=== PATIENT | male | born 1925 | race Caucasian/White ===

== ENCOUNTER 2017-01-24 10:28 | Inpatient (IN) | payer MEDICARE ==
[~2017-01-24] VITALS: Ht 167.6 cm; Wt 67.3 kg
[2017-01-24] VITALS (7 sets, daily range): BP systolic 148–176; BP diastolic 88–102; PULSE 62–72; RESP 12–18; TEMP 96.2–98.3; O2SAT 96–99
[~2017-01-24 10:28] MED LIST: ASPI81TA82 PO; MEVA40TA6 PO
[2017-01-24] MEDS ORDERED: LOVA40TA PO (11:23)
[2017-01-24] MEDS ORDERED: CARB25TA9 PO (11:23)
[2017-01-24] MEDS ORDERED: TAMS0.4C4 PO (11:23)
[2017-01-24] MEDS ORDERED: ASPI81CH37 CHEW (11:23)
[2017-01-24] MEDS ORDERED: LISI-519 PO (11:23)
[2017-01-24] MEDS ORDERED: PLAV75TA29 PO (11:24)
[2017-01-24] MEDS ORDERED: SODIUM CHLORIDE 0.9% FLUSH 10 ML FLUSH IV FLUSH PRN (11:45)
[2017-01-24] MEDS ORDERED: traMADol HCL 50 MG TAB PO ONE (11:45)
[2017-01-24 11:56] LABS: AUTOMATED NEUTROPHIL # 5.6 TH/MM3 (1.8-7.7); BASOPHIL % 0.5 % (0.0-2.0); EOSINOPHIL # 0.2 TH/MM3 (0-0.4); EOSINOPHIL % 2.2 % (0.0-4.0); HEMATOCRIT 31.3 % (39.0-51.0); HEMO FLAGS DIFF FINAL; LYMPHOCYTE # 1.1 TH/MM3 (1.0-4.8); MEAN CELL VOLUME 91.4 FL (80.0-100.0); MEAN CORPUSCULAR HEMOGLOBIN 29.5 PG (27.0-34.0); MEAN CORPUSCULAR HGB CONC 32.3 % (32.0-36.0); NEUT % 72.3 % (16.0-70.0); PLATELET COUNT 182 TH/MM3 (150-450); RED BLOOD COUNT 3.43 MIL/MM3 (4.50-5.90); RED CELL DISTRIBUTION WIDTH 14.3 % (11.6-17.2); WHITE BLOOD COUNT 7.8 TH/MM3 (4.0-11.0)
[2017-01-24 12:04] LABS: CHLORIDE 107 MEQ/L (98-107); POTASSIUM 5.4 MEQ/L (3.5-5.1); SODIUM (NA) 141 MEQ/L (136-145)
[2017-01-24 12:09] LABS: ANION GAP 10 MEQ/L (5-15); APTT (PATIENT) 30.8 SEC (24.3-30.1); BICARBONATE 23.7 MEQ/L (21.0-32.0); BLOOD UREA NITROGEN 39 MG/DL (7-18); INTERNATIONAL NORMALIZED RATIO 1.1 RATIO; PROTHROMBIN TIME - PATIENT 12.5 SEC (9.8-11.6)
[2017-01-24 12:12] LABS: ALT (GPT) 11 U/L (12-78); AST (GOT) 18 U/L (15-37); GLOMERULAR FILTRATION RATE 28 ML/MIN (>89)
[2017-01-24 12:14] LABS: TOTAL BILIRUBIN ADULT 0.6 MG/DL (0.2-1.0)
[2017-01-24 12:15] LABS: ALKALINE PHOSPHATASE 59 U/L (45-117)
--- NOTE | 2017-01-24 12:37 | PD ---
HPI Chief Complaint: Fall Time Seen by Provider: 11:27 Travel History International Travel<30 days: No Contact w/Intl Traveler<30days: No Traveled to known affect area: No History of Present Illness HPI 89-year-old male brought in by his family from home for evaluation of left- sided rib pain and left upper quadrant abdominal pain after a fall. The fall occurred a few days ago. The patient reports that he tripped and fell on a rug. He denies head injury or LOC. No head neck or back pain. No pain in his upper or lower extremities. He is mainly complaining of left lateral rib pain which is worse with movements and palpation.. He states the pain gets so bad that it is difficult for him to stand up. He denies dyspnea. History of A. fib on aspirin. He is also on Plavix for history of CVA. PFSH Past Medical History Hx Anticoagulant Therapy: Yes (asa 81mg) Arthritis: Yes Asthma: No Blood Disorders: No Heart Rhythm Problems: No Cancer: No Cardiovascular Problems: Yes (htn on meds) High Cholesterol: Yes Chest Pain: No Congestive Heart Failure: No COPD: No Cerebrovascular Accident: Yes (cva) Diminished Hearing: Yes Endocrine: No Genitourinary: Yes (PROSATE) Headaches: No Hypertension: Yes Immune Disorder: No Psychiatric: No Reproductive: No Respiratory: No Immunizations Current: No Migraines: No Seizures: No Sleep Apnea: No Tetanus Vaccination: Unknown Influenza Vaccination: No Past Surgical History Abdominal Surgery: Yes (LT HERNIA REPAIR 1991) Joint Replacement: Yes (left knee) Other Surgery: Yes (HERNIA AND KNEE REPLACEMENT) Social History Alcohol Use: No Tobacco Use: No Substance Use: No Allergies-Medications (Allergen,Severity, Reaction): Coded Allergies: Neosporin (Verified Allergy, Severe, RASH, 01/24/17) Reported Meds & Prescriptions Reported Meds & Active Scripts Active Reported Plavix (Clopidogrel Bisulfate) 75 Mg Tab 75 Mg PO DAILY Carbidopa-Levodopa 25-100 Mg Tab 1 Tab PO Q8HR Tamsulosin (Tamsulosin HCl) 0.4 Mg Cap 0.4 Mg PO HS Lovastatin 40 Mg Tab 40 Mg PO DAILY Lisinopril 5 Mg Tab 5 Mg PO DAILY Aspirin Low Dose (Aspirin) 81 Mg Chew 81 Mg CHEW DAILY Review of Systems Except as stated in HPI: all other systems reviewed are Neg Physical Exam Narrative GENERAL: Well-developed, well-nourished, elderly-appearing male, comfortable, no acute distress. SKIN: Focused skin assessment warm/dry. No lacerations or abrasions. Mild ecchymosis to left anterior/lateral chest wall. HEAD: Atraumatic. Normocephalic. EYES: Pupils equal and round. No scleral icterus. No injection or drainage. ENT: Mucous membranes pink and moist. NECK: Trachea midline. No JVD. CARDIOVASCULAR: Regular rate and rhythm. No murmur appreciated. RESPIRATORY: No accessory muscle use. Clear to auscultation. Breath sounds equal bilaterally. GASTROINTESTINAL: Abdomen soft, nondistended. Mild left upper quadrant tenderness without peritoneal signs. Rest of abdomen is soft and nontender. MUSCULOSKELETAL: No obvious deformities. No clubbing. No cyanosis. No edema. Moderate left anterior/lateral chest wall tenderness without crepitus, without step-off, without paradoxical chest wall movement. No midline vertebral step- off or tenderness. All joints and extremities are with without deformity, without tenderness, with normal range of motion. NEUROLOGICAL: Awake and alert. No obvious cranial nerve deficits. Motor grossly within normal limits. Normal speech. PSYCHIATRIC: Appropriate mood and affect; insight and judgment normal. Data Data Last Documented VS Vital Signs Date Time Temp Pulse Resp B/P Pulse Ox O2 Delivery O2 Flow Rate FiO2 01/24/17 13:23 63 18 169/90 96 Room Air 01/24/17 10:36 98.3 Orders Complete Blood Count With Diff (01/24/17 11:35) Comprehensive Metabolic Panel (01/24/17 11:35) Prothrombin Time / Inr (Pt) (01/24/17 11:35) Act Partial Throm Time (Ptt) (01/24/17 11:35) Iv Access Insert/Monitor (01/24/17 11:35) Ecg Monitoring (01/24/17 11:35) Oximetry (01/24/17 11:35) Sodium Chloride 0.9% Flush (Ns Flush) (01/24/17 11:45) Tramadol (Ultram) (01/24/17 11:45) Ckmb (Isoenzyme) Profile (01/24/17 11:40) Troponin I (01/24/17 11:40) Ct Abd/Pel W/O Iv Contrast (01/24/17 11:35) Ct Thorax/ Chest Wo Iv Contras (01/24/17 ) CKMB (01/24/17 11:40) CKMB% (01/24/17 11:40) Urinary Catheter Insert/Apply (01/24/17 13:19) Sodium Polysty Sulfate Liq (Kayexalate L (01/24/17 13:30) Admit Order (Ed Use Only) (01/24/17 13:37) Labs Laboratory Tests Test 01/24/17 11:40 White Blood Count 7.8 TH/MM3 Red Blood Count 3.43 MIL/MM3 Hemoglobin 10.1 GM/DL Hematocrit 31.3 % Mean Corpuscular Volume 91.4 FL Mean Corpuscular Hemoglobin 29.5 PG Mean Corpuscular Hemoglobin 32.3 % Concent Red Cell Distribution Width 14.3 % Platelet Count 182 TH/MM3 Mean Platelet Volume 9.3 FL Neutrophils (%) (Auto) 72.3 % Lymphocytes (%) (Auto) 14.0 % Monocytes (%) (Auto) 11.0 % Eosinophils (%) (Auto) 2.2 % Basophils (%) (Auto) 0.5 % Neutrophils # (Auto) 5.6 TH/MM3 Lymphocytes # (Auto) 1.1 TH/MM3 Monocytes # (Auto) 0.9 TH/MM3 Eosinophils # (Auto) 0.2 TH/MM3 Basophils # (Auto) 0.0 TH/MM3 CBC Comment DIFF FINAL Differential Comment Prothrombin Time 12.5 SEC Prothromb Time International 1.1 RATIO Ratio Activated Partial 30.8 SEC Thromboplast Time Sodium Level 141 MEQ/L Potassium Level 5.4 MEQ/L Chloride Level 107 MEQ/L Carbon Dioxide Level 23.7 MEQ/L Anion Gap 10 MEQ/L Blood Urea Nitrogen 39 MG/DL Creatinine 2.20 MG/DL Estimat Glomerular Filtration 28 ML/MIN Rate Random Glucose 87 MG/DL Calcium Level 8.7 MG/DL Total Bilirubin 0.6 MG/DL Aspartate Amino Transf 18 U/L (AST/SGOT) Alanine Aminotransferase 11 U/L (ALT/SGPT) Alkaline Phosphatase 59 U/L Total Creatine Kinase 125 U/L Creatine Kinase MB 1.0 NG/ML Troponin I LESS THAN 0.02 NG/ML Total Protein 7.2 GM/DL Albumin 3.4 GM/DL [facility] Medical Decision Making Medical Screen Exam Complete: Yes Emergency Medical Condition: Yes Differential Diagnosis Chest wall contusion, rib fractures, pneumothorax, hemothorax, intra-abdominal traumatic injury, ACS less likely Narrative Course Vital signs show heart rate 72, blood pressure 170/102, pulse ox 99% on room air , oral temp of 98.3F. CBC shows WBC 7.8, hemoglobin 10.1, hematocrit 31.3, platelets 182. CMP is remarkable for potassium 5.4, BUN 39, creatinine 2.2, GFR 28 which is worse than last labs on our record from 2013. Cardiac enzymes are negative. CT thorax: CONCLUSION: 1. Patchy densities more notably within the lower lobes. 2. 11 mm density in the right upper lobe adjacent to the minor fissure. Followup CT chest in 3 months recommended for stability 3. Coronary artery calcifications. 4. Tiny pleural effusions. 5. No acute thoracic process. CT abdomen pelvis: CONCLUSION: 1. There is marked distention of the urinary bladder and diffuse severe bilateral hydroureter and hydronephrosis likely from bladder outlet obstruction. 2. Diverticulosis without diverticulitis. 3. No abdominal visceral injury. 4. Bilateral renal cysts. The patient and the patient's family were made aware of all findings. They were provided copies of the CT reports. Garvin will be placed, and the patient will be admitted for overnight observation for urinary retention and renal insufficiency with hyperkalemia. He was also given a dose of Kayexalate for his slight hyperkalemia. Case discussed with [facility]ist Dr. Mitchell. The patient will be admitted to their service under Dr. Ferreira. The patient was initially admitted to the [facility]ist service because his primary care physician is Dr. Olivas, however his insurance is [facility]. Case discussed with [facility] hospitalist Dr. Landaverde, and the patient will be admitted to his service. Garvin catheter placed by my nurse with over 1300 cc of clear urine output. Diagnosis Primary Impression: Urinary retention Additional Impressions: Renal insufficiency Hydroureter Hyperkalemia Pulmonary nodule Admitting Information Admitting Physician Requests: Observation Alphonso Garzon MD January 24, 2017 12:37
[2017-01-24 12:49] LABS: CREATINE KINASE 125 U/L (39-308)
--- NOTE | 2017-01-24 13:13 | RADHPO ---
EXAM DATE/TIME: 01/24/2017 12:25 [facility] COMPARISON: No previous studies available for comparison. INDICATIONS : Pain after fall four days ago. RADIATION DOSE: 13.68 CTDIvol (mGy) ; Combined studies - Thorax/Abdomen/Pelvis MEDICAL HISTORY : Cardiovascular disease. SURGICAL HISTORY : Hernia repair. ENCOUNTER: Initial ACUITY: 1 day PAIN SCALE: 5/10 LOCATION: Left chest TECHNIQUE: Volumetric scanning of the chest was performed. Using automated exposure control and adjustment of t he mA and/or kV according to patient size, radiation dose was kept as low as reasonably achievable to obtain optimal diagnostic quality images. FINDINGS: LUNGS: Patchy densities are seen, more prominent along the right upper lobe adjacent to the minor fissure me asuring 11 mm. PLEURAE: There are bilateral tiny pleural effusions. MEDIASTINUM: The heart and great vessels demonstrate no acute abnormality. There is no mediastinal or hilar lymph adenopathy. Coronary artery calcifications. AXILLAE: Within normal limits. No lymphadenopathy. MUSCULOSKELETAL: Within normal limits for patient age. MISCELLANEOUS: The visualized upper abdominal organs demonstrate hiatal hernia. CONCLUSION: 1. Patchy densities more notably within the lower lobes. 2. 11 mm density in the right upper lobe adjacent to the minor fissure. Followup CT chest in 3 months recommended for stability 3. Coronary artery calcifications. 4. Tiny pleural effusions. 5. No acute thoracic process. Zia Flores MD on January 24, 2017 at 13:08 Board Certified Radiologist. This report was verified electronically.
--- NOTE | 2017-01-24 13:18 | RADHPO ---
EXAM DATE/TIME: 01/24/2017 12:25 [facility] COMPARISON: No previous studies available for comparison. INDICATIONS : Pain after fall four days ago. ORAL CONTRAST: No oral contrast ingested. RADIATION DOSE: 13.68 CTDIvol (mGy) ; Combined studies - Thorax/Abdomen/Pelvis MEDICAL HISTORY : Cardiovascular disease. SURGICAL HISTORY : Hernia repair. ENCOUNTER: Initial ACUITY: 1 day PAIN SCALE: 5/10 LOCATION: Left abdomen. TECHNIQUE: Volumetric scanning of the abdomen and pelvis was performed. Using automated exposure control and ad justment of the mA and/or kV according to patient size, radiation dose was kept as low as reasonably achievable to obtain optimal diagnostic quality images. FINDINGS: LOWER LUNGS: The visualized lower lungs are clear. LIVER: Homogeneous density without lesion. There is no dilation of the biliary tree. No calcified gallston es. SPLEEN: Normal size with 1 cm low-density lesion. PANCREAS: Within normal limits. KIDNEYS: Normal in size and shape. There is bilateral hydronephrosis and hydroureter. There are some calculi layering within the distal distended right ureter. Bilateral renal cysts. ADRENAL GLANDS: Within normal limits. VASCULAR: There is no aortic aneurysm. BOWEL/MESENTERY: Diverticulosis without diverticulitis. There is no free intraperitoneal air or fluid. ABDOMINAL WALL: Within normal limits. RETROPERITONEUM: There is no lymphadenopathy. BLADDER: Massively distended. REPRODUCTIVE: Enlarged prostate with calcification. INGUINAL: There is no lymphadenopathy or hernia. MUSCULOSKELETAL: Within normal limits for patient age. CONCLUSION: 1. There is marked distention of the urinary bladder and diffuse severe bilateral hydroureter and hyd ronephrosis likely from bladder outlet obstruction. 2. Diverticulosis without diverticulitis. 3. No abdominal visceral injury. 4. Bilateral renal cysts. Zia Flores MD on January 24, 2017 at 13:11 Board Certified Radiologist. This report was verified electronically.
[2017-01-24] MEDS ORDERED: SODIUM POLYSTYRENE SULFONATE SUSP 15 GM/60 ML CUP PO ONE (13:30)
--- NOTE | 2017-01-24 14:33 | HHI.HP ---
HPI Service [facility] Hospitalists Primary Care Physician Hang Olivas MD Admission Diagnosis urinary retention, hydroureter, renal insufficiency, hyperkalemia Chief Complaint: Flank pain, abd pain, s/p fall Travel History International Travel<30 Days: No Contact w/Intl Traveler <30 Da: No Traveled to Known Affected Are: No History of Present Illness 89-year-old male with known prostatic hypertrophy brought in by his family from home for evaluation of left-sided rib pain, left flank pain and left upper quadrant abdominal pain after a fall. The fall occurred 3 days ago in his home. The patient reports that he tripped and fell on a rug when he was exiting his bathroom to return to his bedroom. He denies head injury or LOC. No head neck or back pain. No pain in his upper or lower extremities. No palpitations or chest pain. He is mainly complaining of left lateral rib pain which is worse with movements and palpation. He states the pain gets so bad that it is difficult for him to stand up. He denies dyspnea. History of A. fib on aspirin. He is also on Plavix for history of CVA. ER evaluation revealed mild hyperkalemia, acute renal insufficiency and bilateral hydronephrosis with enlarged urinary bladder on CT likely due to outlet obstruction. Garvin was placed and he has produced 3.1 L of urine thus far. He feels much better since the urine has been produced. Review of Systems Constitutional: COMPLAINS OF: Fatigue, DENIES: Diaphoretic episodes, Fever, Weight gain, Weight loss, Chills, Dizziness, Change in appetite, Night Sweats Endocrine: DENIES: Heat/cold intolerance, Polydipsia, Polyuria, Polyphagia Ears, nose, mouth, throat: COMPLAINS OF: Hearing loss Respiratory: DENIES: Apneas, Cough, Snoring, Wheezing, Hemoptysis, Sputum production, Shortness of breath Cardiovascular: COMPLAINS OF: Lower Extremity Edema, DENIES: Chest pain, Palpitations, Syncope, Dyspnea on Exertion, PND, Orthopnea, Claudication Gastrointestinal: COMPLAINS OF: Abdominal pain Musculoskeletal: COMPLAINS OF: Joint pain, Back pain Hematologic/lymphatic: COMPLAINS OF: Bruising Neurologic: COMPLAINS OF: Abnormal gait Psychiatric: COMPLAINS OF: Confusion, DENIES: Anxiety, Mood changes, Depression, Hallucinations, Agitation, Suicidal Ideation, Homicidal Ideation, Delusions, History of Bipolar, History of Schizophrenia Past Family Social History Past Medical History CVA in 2014 BPH Extrapyramidal disorder Osteoarthritis Past Surgical History Left knee replacement Inguinal hernia repair in Reported Medications Plavix (Clopidogrel Bisulfate) 75 Mg Tab 75 Mg PO DAILY Carbidopa-Levodopa 25-100 Mg Tab 1 Tab PO Q8HR Tamsulosin (Tamsulosin HCl) 0.4 Mg Cap 0.4 Mg PO HS Lovastatin 40 Mg Tab 40 Mg PO DAILY Lisinopril 5 Mg Tab 5 Mg PO DAILY Aspirin Low Dose (Aspirin) 81 Mg Chew 81 Mg CHEW DAILY Allergies: Coded Allergies: Neosporin (Verified Allergy, Severe, RASH, 01/24/17) Family History Noncontributory Social History As with his of 63 years Never smoked, denies any alcohol or illicit drug use Has been in the area for over 30 years and 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 Physical Exam Vital Signs Vital Signs Date Time Temp Pulse Resp B/P Pulse Ox O2 Delivery O2 Flow Rate FiO2 01/24/17 13:23 63 18 169/90 96 Room Air 01/24/17 11:52 98 Room Air 01/24/17 11:52 62 18 168/88 98 Room Air 01/24/17 11:06 67 99 Room Air 01/24/17 11:06 67 18 162/95 97 Room Air 01/24/17 10:36 98.3 72 16 170/102 99 Physical Exam GENERAL: This is a well-nourished, elderly, well-developed patient, in no apparent distress. Somewhat bradykinetic. Heart of hearing SKIN: Xerosis. HEAD: Atraumatic. Normocephalic. No temporal or scalp tenderness. EYES: Pupils equal round and reactive. Extraocular motions intact. No scleral icterus. Mild ectropion bilaterally. ENT: Nose without bleeding, purulent drainage or septal hematoma. . Airway patent. NECK: Trachea midline. No JVD or lymphadenopathy. Supple, nontender, no meningeal signs. CARDIOVASCULAR: Regular rate and rhythm without murmurs, gallops, or rubs. RESPIRATORY: Few coarse breath sounds at the bases with occasional expiratory wheeze. No fine crackles. Fair air movement. GASTROINTESTINAL: Abdomen soft, nondistended. Minimal tenderness to palpation in suprapubic region. No hepato-splenomegaly, or palpable masses. No guarding. Bowel sounds normal. MUSCULOSKELETAL: Extremities without clubbing, cyanosis. 1-2+ edema in distal bilateral lower extremities. No calf tenderness. NEUROLOGICAL: Awake and alert. Cranial nerves II through XII intact except for hearing loss. Motor and sensory grossly within normal limits. Five out of 5 muscle strength in all muscle groups. Speech somewhat slow. Laboratory Laboratory Tests Test 01/24/17 11:40 White Blood Count 7.8 Red Blood Count 3.43 Hemoglobin 10.1 Hematocrit 31.3 Mean Corpuscular Volume 91.4 Mean Corpuscular Hemoglobin 29.5 Mean Corpuscular Hemoglobin 32.3 Concent Red Cell Distribution Width 14.3 Platelet Count 182 Mean Platelet Volume 9.3 Neutrophils (%) (Auto) 72.3 Lymphocytes (%) (Auto) 14.0 Monocytes (%) (Auto) 11.0 Eosinophils (%) (Auto) 2.2 Basophils (%) (Auto) 0.5 Neutrophils # (Auto) 5.6 Lymphocytes # (Auto) 1.1 Monocytes # (Auto) 0.9 Eosinophils # (Auto) 0.2 Basophils # (Auto) 0.0 CBC Comment DIFF FINAL Differential Comment Prothrombin Time 12.5 Prothromb Time International 1.1 Ratio Activated Partial 30.8 Thromboplast Time Sodium Level 141 Potassium Level 5.4 Chloride Level 107 Carbon Dioxide Level 23.7 Anion Gap 10 Blood Urea Nitrogen 39 Creatinine 2.20 Estimat Glomerular Filtration 28 Rate Random Glucose 87 Calcium Level 8.7 Total Bilirubin 0.6 Aspartate Amino Transf 18 (AST/SGOT) Alanine Aminotransferase 11 (ALT/SGPT) Alkaline Phosphatase 59 Total Creatine Kinase 125 Creatine Kinase MB 1.0 Troponin I LESS THAN 0.02 Total Protein 7.2 Albumin 3.4 Result Diagram: 01/24/17 1140 01/24/17 1140 Imaging Last 72 hours Impressions Abdomen/Pelvis CT 01/24/17 1135 Signed Impressions: Service Date/Time: Tuesday, January 24, 2017 12:25 - CONCLUSION: 1. There is marked distention of the urinary bladder and diffuse severe bilateral hydroureter and hydronephrosis likely from bladder outlet obstruction. 2. Diverticulosis without diverticulitis. 3. No abdominal visceral injury. 4. Bilateral renal cysts. Zia Flores MD Chest CT 01/24/17 0000 Signed Impressions: Service Date/Time: Tuesday, January 24, 2017 12:25 - CONCLUSION: 1. Patchy densities more notably within the lower lobes. 2. 11 mm density in the right upper lobe adjacent to the minor fissure. Followup CT chest in 3 months recommended for stability 3. Coronary artery calcifications. 4. Tiny pleural effusions. 5. No acute thoracic process. Zia Flores MD Assessment and Plan Problem List: (1) BPH loc w urin obs/LUTS Status: Acute Plan: Long-standing BPH. Lower urinary tract obstruction likely contributing to most of patient's symptomatology and lab abnormality. We'll continue Garvin currently. Strict ins and outs. Monitor labs. Start Avodart. Give 1 dose of Solu-Medrol. Does not see a urologist as an outpatient but will need to do so after discharge. Hopefully can be discharged home tomorrow either with or without Garvin. (2) Urinary retention Status: Acute Plan: As above. (3) Renal insufficiency Status: Acute Plan: Likely associated with outlet obstruction. Follow labs. (4) Hyperkalemia Status: Acute Plan: Patient has been given Kayexalate. Follow labs. (5) History of CVA in adulthood Status: Chronic Plan: Stable with no obvious gross remnant deficit. Code Status DNR Discussed Condition With Patient, his , his daughter and ER physician. Trever Landaverde MD PhD January 24, 2017 14:33
[2017-01-24] MEDS ORDERED: cefTRIAXone INJ 1,000 MG in SODIUM CHLORIDE 0.9% INJ 100 ML IV ONE (15:00)
[2017-01-24] MEDS ORDERED: methylPREDNISolone SOD SUCC 40 MG/1 ML VIAL IV PUSH ONE (15:00)
[2017-01-24] MEDS ORDERED: cloNIDine HCL 0.1 MG TAB PO PRN (16:15)
[2017-01-24] MEDS ORDERED: traMADol HCL 50 MG TAB PO PRN (19:15)
[2017-01-24] MEDS: TAMSULOSIN HCL 0.4 MG CAP PO SCH (21:07)
[2017-01-24] MEDS: CARBIDOPA/LEVODOPA 25 MG/100 MG TAB PO SCH (21:07)
[2017-01-24] MEDS: FINASTERIDE 5 MG TAB PO SCH (21:07)
[2017-01-25 00:28] VITALS: BP 157/88; PULSE 70; RESP 14; TEMP 97; O2SAT 96
[2017-01-25 05:51] LABS: CHLORIDE 106 MEQ/L (98-107); SODIUM (NA) 140 MEQ/L (136-145)
[2017-01-25] MEDS: CARBIDOPA/LEVODOPA 25 MG/100 MG TAB PO SCH ×3 (05:56→20:55)
[2017-01-25 05:59] LABS: ANION GAP 10 MEQ/L (5-15); BICARBONATE 23.9 MEQ/L (21.0-32.0)
[2017-01-25 06:00] LABS: BLOOD UREA NITROGEN 41 MG/DL (7-18)
[2017-01-25 06:01] LABS: ALT (GPT) 8 U/L (12-78); AST (GOT) 15 U/L (15-37)
[2017-01-25 06:02] LABS: GLOMERULAR FILTRATION RATE 32 ML/MIN (>89); TOTAL BILIRUBIN ADULT 0.6 MG/DL (0.2-1.0)
[2017-01-25 06:03] LABS: AUTOMATED NEUTROPHIL # 10.7 TH/MM3 (1.8-7.7); BASOPHIL % 0.1 % (0.0-2.0); HEMATOCRIT 31.2 % (39.0-51.0); LYMPH % 5.8 % (9.0-44.0); LYMPHOCYTE # 0.7 TH/MM3 (1.0-4.8); MEAN CELL VOLUME 90.8 FL (80.0-100.0); MEAN CORPUSCULAR HEMOGLOBIN 29.3 PG (27.0-34.0); MEAN CORPUSCULAR HGB CONC 32.2 % (32.0-36.0); MONO % 4.8 % (0.0-8.0); NEUT % 89.3 % (16.0-70.0); PLATELET COUNT 181 TH/MM3 (150-450); RED BLOOD COUNT 3.43 MIL/MM3 (4.50-5.90); RED CELL DISTRIBUTION WIDTH 13.6 % (11.6-17.2)
[2017-01-25 06:04] LABS: ALKALINE PHOSPHATASE 56 U/L (45-117)
[2017-01-25 06:05] LABS: HEMO FLAGS DIFF FINAL
--- NOTE | 2017-01-25 06:58 | HHI.PR ---
Subjective Remarks Still some slight left flank and left upper quadrant pain but these have improved. As noted hematuria overnight via Garvin. Objective Vitals Vital Signs Date Time Temp Pulse Resp B/P Pulse Ox O2 Delivery O2 Flow Rate FiO2 01/25/17 00:28 97.0 70 14 157/88 96 01/24/17 21:29 96.2 66 12 148/88 97 01/24/17 15:47 67 18 176/91 97 Room Air 01/24/17 14:20 68 18 169/90 97 Room Air 01/24/17 13:23 63 18 169/90 96 Room Air 01/24/17 11:52 98 Room Air 01/24/17 11:52 62 18 168/88 98 Room Air 01/24/17 11:06 67 99 Room Air 01/24/17 11:06 67 18 162/95 97 Room Air 01/24/17 10:36 98.3 72 16 170/102 99 01/24/17 01/24/17 01/25/17 15:00 23:00 07:00 Intake Total 100 ml Output Total 3100 ml 1000 ml 950 ml Balance -3100 ml -900 ml -950 ml Intake IV Total 100 ml Output Urine Total 3100 ml 1000 ml 950 ml GENERAL: Sleeping, arouses to voice. Slightly confused but becomes more alert during the exam. Cooperates with exam. Follow simple commands. SKIN: Warm and dry. HEAD: Normocephalic. EYES: No scleral icterus. No injection or drainage. NECK: Supple, trachea midline. No JVD or lymphadenopathy. CARDIOVASCULAR: Regular rate and rhythm without murmurs, gallops, or rubs. RESPIRATORY: Few coarse breath sounds at the bases but overall clear. Fair air movement. GASTROINTESTINAL: Abdomen soft, non-tender, nondistended. No guarding or rebound. Bowel sounds normal. MUSCULOSKELETAL: No cyanosis. Trace to 1+ edema distal lower extremities. BACK: Nontender without obvious deformity. No CVA tenderness. Result Diagram: 01/25/17 0519 01/25/17 0519 Imaging Last 72 hours Impressions Abdomen/Pelvis CT 01/24/17 1135 Signed Impressions: Service Date/Time: Tuesday, January 24, 2017 12:25 - CONCLUSION: 1. There is marked distention of the urinary bladder and diffuse severe bilateral hydroureter and hydronephrosis likely from bladder outlet obstruction. 2. Diverticulosis without diverticulitis. 3. No abdominal visceral injury. 4. Bilateral renal cysts. Zia Flores MD Chest CT 01/24/17 0000 Signed Impressions: Service Date/Time: Tuesday, January 24, 2017 12:25 - CONCLUSION: 1. Patchy densities more notably within the lower lobes. 2. 11 mm density in the right upper lobe adjacent to the minor fissure. Followup CT chest in 3 months recommended for stability 3. Coronary artery calcifications. 4. Tiny pleural effusions. 5. No acute thoracic process. Zia Flores MD Urinary Catheter: Yes Assessment to: Remove Vascular Central Line Catheter: No A/P Problem List: (1) BPH loc w urin obs/LUTS Status: Acute Plan: Long-standing BPH. Lower urinary tract obstruction likely contributing to most of patient's symptomatology and lab abnormality. Discontinue Garvin this morning for voiding trial. Strict ins and outs. Monitor labs. Started Avodart. Gave 1 dose of Solu-Medrol. Does not see a urologist as an outpatient but will need to do so after discharge. Hopefully discharge later today either with or without Garvin. Hematuria noted possibly from trauma during Garvin insertion. We'll follow. Hold aspirin and Plavix. (2) Urinary retention Status: Acute Plan: As above. (3) Renal insufficiency Status: Acute Plan: Likely associated with outlet obstruction. Labs improving. (4) Hyperkalemia Status: Acute Plan: Patient has been given Kayexalate. Improved. (5) History of CVA in adulthood Status: Chronic Plan: Stable with no obvious gross remnant deficit. Discharge Planning Hopefully discharge home later today either with or without Garvin. Will need outpatient urology follow-up. Trever Landaverde MD PhD January 25, 2017 06:58
[2017-01-25 08:00] VITALS: BP 129/77; PULSE 54; RESP 18; TEMP 96.6; O2SAT 92
[2017-01-25] MEDS ORDERED: ASPIRIN 81 MG CHEW TAB CHEW SCH (09:00)
[2017-01-25] MEDS ORDERED: CLOPIDOGREL 75 MG TAB PO SCH (09:00)
[2017-01-25] MEDS: FINASTERIDE 5 MG TAB PO SCH (10:22)
[2017-01-25] MEDS: PRAVASTATIN SOD 40 MG TAB PO SCH (10:22)
[2017-01-25] MEDS: amLODIPine BESYLATE 5 MG TAB PO SCH (10:23)
[2017-01-25 12:00] VITALS: BP 127/74; PULSE 60; RESP 20; TEMP 97; O2SAT 97
[2017-01-25] MEDS ORDERED: SODIUM CHLOR 0.9% 1000 ML INJ 1,000 ML IV SCH (14:45)
--- NOTE | 2017-01-25 15:03 | EKG ---
Date Performed: 01/24/2017 Time Performed: 11:09:44 PTAGE: 89 years EKG: Atrial fibrillation. Septal and lateral ST-T changes are nonspecific Since previous tracing , no significant change noted Abnormal ECG PREVIOUS TRACING : 12/27/2013 09.51 DOCTOR: Karissa Rizo Interpretating Date/Time 01/25/2017 15:02:22
[2017-01-25 16:00] VITALS: BP 116/73; PULSE 69; RESP 20; TEMP 96.6; O2SAT 100
[2017-01-25] MEDS: TAMSULOSIN HCL 0.4 MG CAP PO SCH (20:55)
[2017-01-25 20:59] VITALS: BP 125/89; PULSE 73; RESP 16; TEMP 97.5; O2SAT 99
[2017-01-25] MEDS ORDERED: LORazepam 2 MG/ML VIAL IV PRN (22:45)
[2017-01-26] VITALS: BP 152/69; PULSE 81; RESP 18; TEMP 96.9; O2SAT 100
--- NOTE | 2017-01-26 07:22 | HHI.PR ---
Subjective Remarks Somewhat confused this morning. Was apparently having some delirium last night and received a dose of Ativan. He is arousable and reports that he has no pain this morning. Objective Vitals Vital Signs Date Time Temp Pulse Resp B/P Pulse Ox O2 Delivery O2 Flow Rate FiO2 01/26/17 04:49 01/26/17 00:00 96.9 81 18 152/69 100 01/25/17 20:59 97.5 73 16 125/89 99 01/25/17 16:00 96.6 69 20 116/73 100 01/25/17 12:00 97.0 60 20 127/74 97 01/25/17 08:00 96.6 54 18 129/77 92 01/25/17 01/25/17 01/26/17 14:59 22:59 06:59 Intake Total 900 ml 975 ml Output Total 1600 ml 1300 ml Balance -700 ml -325 ml Intake Oral 900 ml IV Total 975 ml Output Urine Total 1600 ml 1300 ml # Bowel Movements 0 0 GENERAL: Sleeping, arouses to voice. A bit confused and hard of hearing. Cooperates with exam. Moves all extremities to command. SKIN: Warm and dry. HEAD: Normocephalic. EYES: No scleral icterus. No injection or drainage. NECK: Supple, trachea midline. No JVD or lymphadenopathy. CARDIOVASCULAR: Regular rate and rhythm without murmurs, gallops, or rubs. RESPIRATORY: Diminished breath sounds at the bases but overall breath sounds equal bilaterally. No accessory muscle use. No wheeze or crackle. GASTROINTESTINAL: Abdomen soft, non-tender, nondistended. Bowel sounds normal. MUSCULOSKELETAL: No cyanosis. Trace edema distal lower extremities. BACK: Nontender without obvious deformity. No CVA tenderness. Result Diagram: 01/25/17 0519 01/25/17 0519 Imaging Last 72 hours Impressions Abdomen/Pelvis CT 01/24/17 1135 Signed Impressions: Service Date/Time: Tuesday, January 24, 2017 12:25 - CONCLUSION: 1. There is marked distention of the urinary bladder and diffuse severe bilateral hydroureter and hydronephrosis likely from bladder outlet obstruction. 2. Diverticulosis without diverticulitis. 3. No abdominal visceral injury. 4. Bilateral renal cysts. Zia Flores MD Chest CT 01/24/17 0000 Signed Impressions: Service Date/Time: Tuesday, January 24, 2017 12:25 - CONCLUSION: 1. Patchy densities more notably within the lower lobes. 2. 11 mm density in the right upper lobe adjacent to the minor fissure. Followup CT chest in 3 months recommended for stability 3. Coronary artery calcifications. 4. Tiny pleural effusions. 5. No acute thoracic process. Zia Flores MD Urinary Catheter: Yes Assessment to: Continue Garvin insert reason: Obstruction/Retention Vascular Central Line Catheter: No A/P Problem List: (1) BPH loc w urin obs/LUTS Status: Acute Plan: Long-standing BPH. Lower urinary tract obstruction likely contributing to most of patient's symptomatology and lab abnormality. Failed a voiding trial yesterday. Garvin reinserted. Strict ins and outs. Monitor labs. Started Avodart. Gave 1 dose of Solu-Medrol. Hematuria has cleared. After discussion with his other daughter yesterday it appears that he actually does have an outpatient urologist, Dr. Woodall. We'll attempt to contact Dr. heller this morning and arrange for outpatient follow-up. Continue Garvin in place. UA pending. We'll give once daily Cipro as somewhat prophylactic measure. (2) Urinary retention Status: Acute Plan: As above. (3) Renal insufficiency Status: Acute Plan: Likely associated with outlet obstruction. Labs improving. (4) Hyperkalemia Status: Acute Plan: Patient has been given Kayexalate. Improved. (5) History of CVA in adulthood Status: Chronic Plan: Stable with no obvious gross remnant deficit. Discharge Planning Hopefully discharge home later today with Garvin. Will need outpatient urology follow-up. Trever Landaverde MD PhD January 26, 2017 07:22
[2017-01-26 07:25] LABS: POTASSIUM 4.2 MEQ/L (3.5-5.1)
[2017-01-26 07:30] LABS: BICARBONATE 25.7 MEQ/L (21.0-32.0)
[2017-01-26 08:00] VITALS: BP 162/94; PULSE 74; RESP 20; TEMP 97.7; O2SAT 95
[2017-01-26] MEDS ORDERED: FINA5TAB2 PO (08:05)
[2017-01-26] MEDS ORDERED: CIPR-9 PO (08:05)
[2017-01-26] MEDS ORDERED: AMLO5 PO (08:05)
[2017-01-26] MEDS ORDERED: ULTR50TA5 PO (08:05)
--- NOTE | 2017-01-26 08:12 | HHI.DS ---
Discharge Summary Admission Date January 25, 2017 at 14:34 Discharge Date: January 26, 2017 Admitting Diagnosis urinary retention, hydroureter, renal insufficiency, hyperkalemia (1) BPH loc w urin obs/LUTS Diagnosis: Principal (2) Urinary retention Diagnosis: Principal (3) Renal insufficiency Diagnosis: Principal (4) Hyperkalemia Diagnosis: Secondary (5) History of CVA in adulthood Diagnosis: Secondary Brief History 89-year-old male with known prostatic hypertrophy brought in by his family from home for evaluation of left-sided rib pain, left flank pain and left upper quadrant abdominal pain after a fall. The fall occurred 3 days ago in his home. The patient reports that he tripped and fell on a rug when he was exiting his bathroom to return to his bedroom. He denies head injury or LOC. No head neck or back pain. No pain in his upper or lower extremities. No palpitations or chest pain. He is mainly complaining of left lateral rib pain which is worse with movements and palpation. He states the pain gets so bad that it is difficult for him to stand up. He denies dyspnea. History of A. fib on aspirin. He is also on Plavix for history of CVA. ER evaluation revealed mild hyperkalemia, acute renal insufficiency and bilateral hydronephrosis with enlarged urinary bladder on CT likely due to outlet obstruction. Kee was placed and he has produced 3.1 L of urine thus far. He feels much better since the urine has been produced. CBC/BMP: 01/25/17 0519 01/26/17 0620 Significant Findings Laboratory Tests Test 01/24/17 01/25/17 01/26/17 11:40 05:19 06:20 Red Blood Count 3.43 MIL/MM3 3.43 MIL/MM3 (4.50-5.90) (4.50-5.90) Hemoglobin 10.1 GM/DL 10.1 GM/DL (13.0-17.0) (13.0-17.0) Hematocrit 31.3 % 31.2 % (39.0-51.0) (39.0-51.0) Neutrophils (%) (Auto) 72.3 % 89.3 % (16.0-70.0) (16.0-70.0) Monocytes (%) (Auto) 11.0 % (0.0-8.0) Prothrombin Time 12.5 SEC (9.8-11.6) Activated Partial 30.8 SEC Thromboplast Time (24.3-30.1) Potassium Level 5.4 MEQ/L (3.5-5.1) Blood Urea Nitrogen 39 MG/DL (7-18) 41 MG/DL (7-18) 42 MG/DL (7-18) Creatinine 2.20 MG/DL 2.00 MG/DL 1.90 MG/DL (0.60-1.30) (0.60-1.30) (0.60-1.30) Estimat Glomerular Filtration 28 ML/MIN (>89) 32 ML/MIN (>89) 34 ML/MIN (>89) Rate Alanine Aminotransferase 11 U/L (12-78) 8 U/L (12-78) (ALT/SGPT) Troponin I LESS THAN 0.02 NG/ML (0.02-0.05) White Blood Count 12.0 TH/MM3 (4.0-11.0) Lymphocytes (%) (Auto) 5.8 % (9.0-44.0) Neutrophils # (Auto) 10.7 TH/MM3 (1.8-7.7) Lymphocytes # (Auto) 0.7 TH/MM3 (1.0-4.8) Random Glucose 134 MG/DL (74-106) Albumin 2.9 GM/DL (3.4-5.0) Imaging Last 72 hours Impressions Abdomen/Pelvis CT 01/24/17 1135 Signed Impressions: Service Date/Time: Tuesday, January 24, 2017 12:25 - CONCLUSION: 1. There is marked distention of the urinary bladder and diffuse severe bilateral hydroureter and hydronephrosis likely from bladder outlet obstruction. 2. Diverticulosis without diverticulitis. 3. No abdominal visceral injury. 4. Bilateral renal cysts. Zia Flores MD Chest CT 01/24/17 0000 Signed Impressions: Service Date/Time: Tuesday, January 24, 2017 12:25 - CONCLUSION: 1. Patchy densities more notably within the lower lobes. 2. 11 mm density in the right upper lobe adjacent to the minor fissure. Followup CT chest in 3 months recommended for stability 3. Coronary artery calcifications. 4. Tiny pleural effusions. 5. No acute thoracic process. Zia Flores MD Hospital Course Pt admitted for obstructive uropathy likely due to BPH. Kee placed initially producing appx 3.5 liters of urine. Pt's pain and renal indices improved with relief of obstruction. Pt failed voiding trial w/o kee. Kee was replaced and his renal indices, K+ continued to improve. Avodart was added. Will be d/c home with kee in place and close f/u with urology. Pt Condition on Discharge: Stable Discharge Disposition: Disch w/ Home Health Serv Discharge Instructions DIET: Follow Instructions for: Heart Healthy Diet Speech Therapy-Diet Recommends: Regular Activities you can perform: Weight Bearing as Remberto Follow up Referrals: PCP Follow-up Urology New Orders: BASIC METABOLIC PROF - 2-3 Days New Medications: Amlodipine (Norvasc) 5 Mg Tab 2.5 MG PO DAILY HTN #31 TAB Ciprofloxacin (Cipro) 500 Mg Tab 500 MG PO DAILY BPH #14 TAB Finasteride (Finasteride) 5 Mg Tab 5 MG PO DAILY BPH #31 TAB Tramadol (Ultram) 50 Mg Tab 50 MG PO Q8H PRN PAIN 3-10 #30 TAB Continued Medications: Aspirin (Aspirin Low Dose) 81 Mg Chew 81 MG CHEW DAILY Ref 0 TAB Carbidopa-Levodopa (Carbidopa-Levodopa) 25-100 Mg Tab 1 TAB PO Q8HR Parkinson Disease Mgmt #90 Ref 0 TAB Clopidogrel (Plavix) 75 Mg Tab 75 MG PO DAILY Blood Clot Prevention #30 Ref 0 TAB Lovastatin (Lovastatin) 40 Mg Tab 40 MG PO DAILY Cholesterol Management #30 Ref 0 TAB Tamsulosin (Tamsulosin) 0.4 Mg Cap 0.4 MG PO HS Manage Prostate Problems #30 Ref 0 CAP Discontinued Medications: Lisinopril (Lisinopril) 5 Mg Tab 5 MG PO DAILY Blood Pressure Management #30 Ref 0 TAB Trever Landaverde MD PhD January 26, 2017 08:12
--- NOTE | 2017-01-26 08:14 | HHI.FF ---
Face to Face Verification Diagnosis: (1) Urinary retention (2) Renal insufficiency (3) BPH loc w urin obs/LUTS (4) History of CVA in adulthood Physical Therapy Order: Evaluate and Treat, Improve ambulation, Strength and gait training Home Health Nursing Order: Signs/symptoms of disease process Garvin catheter maintenance Home Health Aide Order: To Assist In: Bathing and personal care I have seen patient Nam DuenasJr on 01/26/17. My clinical findings support the need for the requested home health care services because: Ltd mobility - disease progression Deconditioned w/ increased weakness Limited ability to care for self High risk of falls I certify that my clinical findings support that this patient is homebound because: Impaired cognitive ability/safety Unsteady gait/balance Trever Landaverde MD PhD January 26, 2017 08:14
[2017-01-26] MEDS ORDERED: CIPROFLOXACIN 500 MG TAB PO SCH (09:00)
[2017-01-26] MEDS: CARBIDOPA/LEVODOPA 25 MG/100 MG TAB PO SCH (09:17)
[2017-01-26] MEDS: amLODIPine BESYLATE 5 MG TAB PO SCH (09:18)
[2017-01-26] MEDS: FINASTERIDE 5 MG TAB PO SCH (09:18)
[2017-01-26] MEDS: PRAVASTATIN SOD 40 MG TAB PO SCH (09:18)
[2017-01-26 12:00] VITALS: BP 147/87; PULSE 82; RESP 18; TEMP 97.7; O2SAT 97
[2017-01-26 12:13] LABS: BLOOD, URINE LARGE (NEG); GLUCOSE,URINE NEG (NEG); KETONE, URINE NEG (NEG); NITRITE,URINE NEG (NEG)
[2017-01-26 12:17] LABS: URINE COLOR STRAW (YELLW/STRAW)
[2017-01-26 12:23] LABS: COMMENT (UR) CATH-CULT NOT IND; CULTURE IF INDICATED CATH CULTURE NOT IND; SQUAMOUS EPITHELIAL CELL URINE 0-5 /hpf (0-5); WBC, URINE 0-2 /hpf (0-5)
--- NOTE | 2017-01-26 15:09 | RADHPO ---
EXAM DATE/TIME: 01/26/2017 14:41 [facility] COMPARISON: CT BRAIN W/O CONTRAST, December 27, 2013, 10:30. INDICATIONS : Altered mental status. RADIATION DOSE: 60.58 CTDIvol (mGy) MEDICAL HISTORY : Renal insufficiency. SURGICAL HISTORY : CVA, Bi lat knee replacement, LT hernia repair. ENCOUNTER: Initial ACUITY: 1 day PAIN SCALE: 0/10 LOCATION: TECHNIQUE: Multiple contiguous axial images were obtained of the head. Using automated exposure control and adj ustment of the mA and/or kV according to patient size, radiation dose was kept as low as reasonably a chievable to obtain optimal diagnostic quality images. FINDINGS: CEREBRUM: The ventricles are normal for age. No evidence of midline shift, mass lesion, hemorrhage or acute in farction. There is an old infarct involving the medial right occipital lobe. No extra-axial fluid co llections are seen. There is chronic bilateral white matter changes. POSTERIOR FOSSA: The cerebellum and brainstem are intact. The 4th ventricle is midline. The cerebellopontine angle i s unremarkable. EXTRACRANIAL: The visualized portion of the orbits is intact. SKULL: The calvaria is intact. No evidence of skull fracture. CONCLUSION: 1. No focal or acute intracranial hemorrhage. 2. Old infarct involving the medial right occipital lobe. Shahram Lopez MD on January 26, 2017 at 15:05 Board Certified Radiologist. This report was verified electronically.
[2017-01-26 16:00] VITALS: BP 157/98; PULSE 81; RESP 20; TEMP 97.6; O2SAT 96
== END 2017-01-26 16:39 | disposition home health service (06) | DRG 726 ==
LOC: PHED 10:28 → PHEDA 13:38 → PH3B 16:15 → OBSVTOIN 01-25 14:34
PROVIDERS: ADMIT Family Medicine; ATTEND Family Medicine
DX: N40.1 Benign prostatic hyperplasia with lower urinary tract symptoms (principal); N13.30 Unspecified hydronephrosis; E87.5 Hyperkalemia; N13.8 Other obstructive and reflux uropathy; R41.0 Disorientation, unspecified; I48.91 Unspecified atrial fibrillation; Z79.02 Long term (current) use of antithrombotics/antiplatelets; Z86.73 Personal history of transient ischemic attack (TIA), and cerebral infarction without residual deficits
CPT/HCPCS: 70450; 71250; 74176; 80048; 80053; 81001; 82550; 82552; 84484; 85025; 85610; 85730; 93005; G0378; G8987-GP; G8988-GP; J0696; J2060; J2920; J7030

== ENCOUNTER 2017-03-06 12:53 | Emergency (ER) | payer OTHER, MEDICARE ==
[~2017-03-06] VITALS: Ht 175.3 cm; Wt 56.0 kg
[~2017-03-06 12:53] MED LIST changes: +AMLO5 PO; +ASPI81CH37 CHEW; -ASPI81TA82 PO; +CARB25TA9 PO; +CIPR-9 PO; +FINA5TAB2 PO; +LOVA40TA PO; -MEVA40TA6 PO; +PLAV75TA29 PO; +TAMS0.4C4 PO; +ULTR50TA5 PO
[2017-03-06 12:58] VITALS: BP 111/74; PULSE 77; RESP 15; TEMP 97.5
[2017-03-06] MEDS ORDERED: SODIUM CHLOR 0.9% 1000 ML INJ 1,000 ML IV ONE (13:02)
[2017-03-06] MEDS ORDERED: SODIUM CHLOR 0.9% 1000 ML INJ 800 ML IV ONE (13:02)
--- NOTE | 2017-03-06 13:15 | PD ---
HPI . Altered mental status Chief Complaint: Neuro Symptoms/ Deficits Time Seen by Provider: 13:02 Travel History International Travel<30 days: No Contact w/Intl Traveler<30days: No Traveled to known affect area: No History of Present Illness HPI The patient is brought in by his family for altered mental status. History is obtained from the family. The patient is unable to provide any meaningful history. He reports that he was in his normal state of poor health approximately a week ago. They state that he had been ambulatory about the house with a cane and had been able to feed himself. The patient also reportedly normal speech last week. Over the course of the last week has gradually lost the ability to do these things and is no longer understandable. The family reports that the patient was seen by his primary care doctor at the onset of his symptoms is diagnosed with the urinary tract infection. The urinary tract infection was treated. The patient was seen by his PCP today and the family was told that his urine was clear. Therefore, the etiology of his altered mental status is now unknown. PFSH Past Medical History Hx Anticoagulant Therapy: Yes (asa 81mg) Arthritis: Yes Asthma: No Blood Disorders: No Heart Rhythm Problems: No Cancer: No Cardiovascular Problems: Yes (CHRONIC A-FIB) High Cholesterol: Yes Chest Pain: No Congestive Heart Failure: No COPD: No Cerebrovascular Accident: Yes (cva) Diminished Hearing: Yes Endocrine: No Genitourinary: Yes Headaches: No Hypertension: Yes Immune Disorder: No Musculoskeletal: Yes Neurologic: Yes Psychiatric: No Reproductive: No Respiratory: No Immunizations Current: No Migraines: No Seizures: No Sleep Apnea: No Past Surgical History Abdominal Surgery: Yes (LT HERNIA REPAIR ) Joint Replacement: Yes (BILATERAL KNEES) Other Surgery: Yes (HERNIA AND KNEE REPLACEMENT) Social History Alcohol Use: No Tobacco Use: No Substance Use: No Allergies-Medications (Allergen,Severity, Reaction): Coded Allergies: Neosporin (Verified Allergy, Severe, RASH, 03/06/17) FAMILY UNSURE Reported Meds & Prescriptions Reported Meds & Active Scripts Active Finasteride 5 Mg Tab 5 Mg PO DAILY Norvasc (Amlodipine Besylate) 5 Mg Tab 2.5 Mg PO DAILY Reported Plavix (Clopidogrel Bisulfate) 75 Mg Tab 75 Mg PO DAILY Carbidopa-Levodopa 25-100 Mg Tab 1 Tab PO Q8HR Tamsulosin (Tamsulosin HCl) 0.4 Mg Cap 0.4 Mg PO HS Aspirin Low Dose (Aspirin) 81 Mg Chew 81 Mg CHEW DAILY Review of Systems ROS Limitations: Altered Mental Status Except as stated in HPI: all other systems reviewed are Neg General / Constitutional: No: Fever, Chills Genitourinary: Positive: Other (indwelling Garvin catheter) Neurologic: Positive: Other (previous CVA and history of Parkinson's disease) Physical Exam Narrative GENERAL: Patient is lying on the stretcher moaning incomprehensible words. SKIN: Warm and dry. HEAD: Atraumatic. Normocephalic. EYES: Pupils equal and round. Extraocular movements are intact. ENT: No nasal bleeding or discharge. Mucous membranes pink and moist. NECK: Trachea midline. Neck is supple. CARDIOVASCULAR: Regular rate and rhythm. Heart sounds are normal. RESPIRATORY: No accessory muscle use. Lungs sound clear. GASTROINTESTINAL: Abdomen soft, non-tender, nondistended. MUSCULOSKELETAL: No obvious deformities. No edema. NEUROLOGICAL: Moving all 4 extremities equally. PSYCHIATRIC: Unable to assess. Data Data Last Documented VS Vital Signs Date Time Temp Pulse Resp B/P Pulse Ox O2 Delivery O2 Flow Rate FiO2 03/06/17 13:53 70 20 141/89 100 Room Air 03/06/17 12:58 97.5 Orders Electrocardiogram (03/06/17 13:02) Complete Blood Count With Diff (03/06/17 13:02) Comprehensive Metabolic Panel (03/06/17 13:02) Lactic Acid Sepsis Protocol (03/06/17 13:02) Urinalysis - C+S If Indicated (03/06/17 13:02) Blood Culture (03/06/17 13:02) Chest, Single Ap (03/06/17 13:02) Blood Glucose (03/06/17 13:02) Ecg Monitoring (03/06/17 13:02) Iv Access Insert/Monitor (03/06/17 13:02) Cath For Specimen (03/06/17 13:02) Oximetry (03/06/17 13:02) Oxygen Administration (03/06/17 13:02) Ct Brain W/O Iv Contrast(Rout) (03/06/17 13:02) Sodium Chlor 0.9% 1000 Ml Inj (Ns 1000 M (03/06/17 13:02) Sodium Chlor 0.9% 1000 Ml Inj (Ns 1000 M (03/06/17 13:02) Continue Garvin/Suprapubic Cath (03/06/17 13:32) Labs Laboratory Tests Test 03/06/17 13:10 White Blood Count 9.0 TH/MM3 Red Blood Count 4.20 MIL/MM3 Hemoglobin 12.4 GM/DL Hematocrit 37.8 % Mean Corpuscular Volume 90.0 FL Mean Corpuscular Hemoglobin 29.6 PG Mean Corpuscular Hemoglobin 32.8 % Concent Red Cell Distribution Width 13.6 % Platelet Count 313 TH/MM3 Mean Platelet Volume 8.6 FL Neutrophils (%) (Auto) 71.8 % Lymphocytes (%) (Auto) 16.4 % Monocytes (%) (Auto) 9.8 % Eosinophils (%) (Auto) 1.6 % Basophils (%) (Auto) 0.4 % Neutrophils # (Auto) 6.5 TH/MM3 Lymphocytes # (Auto) 1.5 TH/MM3 Monocytes # (Auto) 0.9 TH/MM3 Eosinophils # (Auto) 0.1 TH/MM3 Basophils # (Auto) 0.0 TH/MM3 CBC Comment DIFF FINAL Differential Comment Sodium Level 132 MEQ/L Potassium Level 5.3 MEQ/L Chloride Level 98 MEQ/L Carbon Dioxide Level 23.8 MEQ/L Anion Gap 10 MEQ/L Blood Urea Nitrogen 38 MG/DL Creatinine 1.90 MG/DL Estimat Glomerular Filtration 34 ML/MIN Rate Random Glucose 156 MG/DL Lactic Acid Level 1.5 mmol/L Calcium Level 9.6 MG/DL Total Bilirubin 0.6 MG/DL Aspartate Amino Transf 23 U/L (AST/SGOT) Alanine Aminotransferase 9 U/L (ALT/SGPT) Alkaline Phosphatase 90 U/L Total Protein 8.2 GM/DL Albumin 3.4 GM/DL [facility] Medical Decision Making Medical Screen Exam Complete: Yes Emergency Medical Condition: Yes Interpretation(s) EKG shows atrial flutter with a ventricular response of 66. On comparison to previous EKG, the atrial flutter is not new. Differential Diagnosis Differential diagnosis of altered mental status includes but is not limited to infection, electrolyte abnormality, neurological event, intoxication Narrative Course Patient presents with his family with a chief complaint of gradually worsening altered mental status for the last week. He has been treated this past week for a urinary tract infection. The infection has cleared but his mental status has not. Last Impressions Head CT 03/06/17 1302 Signed Impressions: Service Date/Time: Monday, March 06, 2017 13:17 - CONCLUSION: Remote small infarct in the right occipital lobe. No acute intracranial abnormality. Doyle Bailey MD CXR>>Chronic appearing interstitial changes with minimal effusion at the left lung base. The chest x-ray was independently viewed by me. CBC & BMP Diagram 03/06/17 13:10 Lactic acid is 1.5. Liver function studies are normal. His labs are stable for him. I have the urine results from his doctor's office from earlier today. It is nitrite negative and leukocyte esterase small. Our case maker has determined that the patient is indeed a hospice patient and has a DNR order. This patient should be treated with supportive care. He will be discharged to home. Diagnosis Primary Impression: Altered mental status Qualified Code: R40.0 - Somnolence Additional Instructions: Follow-up with Dr. Olivas and with hospice as needed. Disposition: 01 DISCHARGE HOME Condition: Stable Nohemy Bruce MD Mar 06, 2017 13:15
[2017-03-06 13:39] LABS: AUTOMATED NEUTROPHIL # 6.5 TH/MM3 (1.8-7.7); BASOPHIL % 0.4 % (0.0-2.0); EOSINOPHIL # 0.1 TH/MM3 (0-0.4); EOSINOPHIL % 1.6 % (0.0-4.0); HEMATOCRIT 37.8 % (39.0-51.0); HEMO FLAGS DIFF FINAL; LYMPH % 16.4 % (9.0-44.0); LYMPHOCYTE # 1.5 TH/MM3 (1.0-4.8); MEAN CORPUSCULAR HEMOGLOBIN 29.6 PG (27.0-34.0); MEAN CORPUSCULAR HGB CONC 32.8 % (32.0-36.0); MONO % 9.8 % (0.0-8.0); NEUT % 71.8 % (16.0-70.0); PLATELET COUNT 313 TH/MM3 (150-450); RED CELL DISTRIBUTION WIDTH 13.6 % (11.6-17.2)
[2017-03-06 13:42] LABS: CHLORIDE 98 MEQ/L (98-107); POTASSIUM 5.3 MEQ/L (3.5-5.1); SODIUM (NA) 132 MEQ/L (136-145)
[2017-03-06 13:46] LABS: ANION GAP 10 MEQ/L (5-15); BICARBONATE 23.8 MEQ/L (21.0-32.0); BLOOD UREA NITROGEN 38 MG/DL (7-18)
--- NOTE | 2017-03-06 13:46 | RADRPT ---
EXAM DATE/TIME: 03/06/2017 13:17 [facility] COMPARISON: No previous studies available for comparison. INDICATIONS : Altered mental status. RADIATION DOSE: 68.03 CTDIvol (mGy) MEDICAL HISTORY : Cerebrovascular disease. Cardiovascular disease Hypertension. SURGICAL HISTORY : None. ENCOUNTER: Initial ACUITY: 1 day PAIN SCALE: 0/10 LOCATION: cranial TECHNIQUE: Multiple contiguous axial images were obtained of the head. Using automated exposure control and adj ustment of the mA and/or kV according to patient size, radiation dose was kept as low as reasonably a chievable to obtain optimal diagnostic quality images. DICOM format image data is available electro nically for review and comparison. FINDINGS: CEREBRUM: The ventricles are normal for age. No evidence of midline shift, mass lesion, hemorrhage or acute in farction. There is a remote small infarct in the right occipital lobe. No extra-axial fluid collecti ons are seen.POSTERIOR FOSSA: The cerebellum and brainstem are intact. The 4th ventricle is midline. The cerebellopontine angle i s unremarkable. EXTRACRANIAL: The visualized portion of the orbits is intact. SKULL: The calvaria is intact. No evidence of skull fracture. CONCLUSION: Remote small infarct in the right occipital lobe. No acute intracranial abnormality. Doyle Bailey MD on March 06, 2017 at 13:41 Board Certified Radiologist. This report was verified electronically.
[2017-03-06 13:48] VITALS: RESP 20; O2SAT 97
[2017-03-06 13:49] LABS: ALT (GPT) 9 U/L (12-78); AST (GOT) 23 U/L (15-37); GLOMERULAR FILTRATION RATE 34 ML/MIN (>89)
[2017-03-06 13:50] LABS: TOTAL BILIRUBIN ADULT 0.6 MG/DL (0.2-1.0)
[2017-03-06 13:51] LABS: ALKALINE PHOSPHATASE 90 U/L (45-117)
[2017-03-06 13:53] VITALS: BP 141/89; PULSE 70; RESP 20; O2SAT 100
--- NOTE | 2017-03-06 13:54 | RADRPT ---
EXAM DATE/TIME: 03/06/2017 13:24 [facility] COMPARISON: CT THORAX W/O CONTRAST, January 24, 2017, 12:25. INDICATIONS : Stroke MEDICAL HISTORY : None. SURGICAL HISTORY : None. ENCOUNTER: Initial ACUITY: 1 day PAIN SCORE: Non-responsive. LOCATION: Bilateral chest FINDINGS: The heart is at the upper limits of normal in size. There is minimal effusion at the left lung base. There chronic interstitial changes. The bony structures demonstrate degenerative changes but are othe rwise intact. CONCLUSION: 1. Chronic appearing interstitial changes with minimal effusion at the left lung base. Buddy Streeter MD on March 06, 2017 at 13:46 Board Certified Radiologist. This report was verified electronically.
[2017-03-06 14:58] VITALS: BP 135/78; PULSE 74; RESP 18; O2SAT 100
[2017-03-06 16:07] VITALS: BP 130/84; PULSE 76; RESP 18; O2SAT 100
--- NOTE | 2017-03-07 12:14 | EKG ---
Date Performed: 03/06/2017 Time Performed: 13:13:00 PTAGE: 89 years EKG: ATRIAL FIBRILLATION MODERATE ST DEPRESSION Since previous tracing, no significant change no dorian. ABNORMAL ECG PREVIOUS TRACING : 01/24/2017 11.09 DOCTOR: Josue Zavala Interpretating Date/Time 03/07/2017 12:12:03
== END 2017-03-06 16:12 | disposition home or self-care (01) ==
LOC: PHED 12:53
DX: R40.0 Somnolence (principal); R94.31 Abnormal electrocardiogram [ECG] [EKG]; I10 Essential (primary) hypertension; E78.00 Pure hypercholesterolemia, unspecified; H91.90 Unspecified hearing loss, unspecified ear; Z74.09 Other reduced mobility; Z79.82 Long term (current) use of aspirin; Z66 Do not resuscitate; Z87.39 Personal history of other diseases of the musculoskeletal system and connective tissue; Z86.79 Personal history of other diseases of the circulatory system; Z87.448 Personal history of other diseases of urinary system; Z86.69 Personal history of other diseases of the nervous system and sense organs
CPT/HCPCS: 70450; 71010; 80053; 83605; 85025; 87040; 93005; 96360; 96361; 99285; J7030